=== PATIENT | male | born 1980 | race Caucasian/White ===

== ENCOUNTER → 2019-11-25 15:10 | Outpatient (CLI) | payer OTHER, SELFPAY ==
--- NOTE | ~2019-11-25 | XR_ITS ---
XR knee LT 2V DATE: 11/25/2019 15:25 INDICATION: Left knee pain TECHNIQUE: Standing AP and lateral views COMPARISON: None FINDINGS: No fracture or dislocation or joint effusion. The joint spaces are well preserved. No rad iopaque intra-articular loose body or chondrocalcinosis is detected. IMPRESSION: Negative Reviewed, dictated and finalized at location B. MAKER IMPRESSION: Negative
== END ==
PROVIDERS: Visit Provider Nurse Practitioner Family
DX: M25.562 Pain in left knee (principal)
CPT/HCPCS: 73560